=== PATIENT | female | born 1950 | race Caucasian/White ===

== ENCOUNTER → 2016-12-23 | Outpatient (CLI) | payer MEDICARE, OTHER ==
[~2016-12-23] MED LIST: ASPI-558 PO; BENA20TA45 PO; CALC-587 PO; FISH1CAP29 PO; PRAV20TA48 PO; RANI-209 PO; VITAMIN D
--- NOTE | 2016-12-23 12:50 | DI ---
Indication: ITS.REASON: M25.562 PAIN IN LEFT KNEE PROCEDURE: KNEE LEFT 3 VIEWS: Encounter: Initial Comparison: None Findings: There is no acute fracture, dislocation or malalignment identified. Mild medial compartment joint space narrowing. Small lateral osteophytes. Impression: No acute osseous abnormality. Mild osteoarthritis. .
== END ==
LOC: IMA 11:54
PROVIDERS: ATTEND Family Medicine
DX: M17.12 Unilateral primary osteoarthritis, left knee (principal); M25.562 Pain in left knee

== ENCOUNTER → 2016-12-30 | Outpatient (CLI) | payer MEDICARE, OTHER ==
--- NOTE | 2016-12-30 16:13 | DI ---
Indication: ITS.REASON: M22.3X2 OTHER DERANGEMENTS OF PATELLA, LEFT KNEE PROCEDURE: MRI KNEE LEFT W/O CONTRAST: Encounter: Initial Comparison: Left knee radiographs dated December 23, 2016 Technique: Multiplanar multisequence MR imaging of the left knee was performed without contrast. Findings: There is a degenerative fairly extensive tear of the lateral meniscus. This is predominantly a horizontal tear. There is a complex macerated tear of the posterior horn medial meniscus with possible radial components. The ACL and PCL are intact. The MCL and lateral collateral ligament complex are intact. The extensor mechanism is intact. No acute fracture. The cartilage of the lateral compartment shows some mild partial-thickness cartilage loss. Medial compartment cartilage shows areas of full-thickness loss in the anterior aspect of the medial femoral condyle with subchondral edema. There is also cartilage loss on the anterior tibial plateau with osteophyte formation. Patellofemoral compartment has full-thickness loss in the median ridge and medial facet with partial-thickness loss laterally. No joint effusion. Moderate Bakers cyst. Muscular signal intensity is normal. 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 .
== END ==
LOC: IMA 10:39
PROVIDERS: ATTEND Family Medicine
DX: M17.12 Unilateral primary osteoarthritis, left knee (principal); M23.322 Other meniscus derangements, posterior horn of medial meniscus, left knee; M23.301 Other meniscus derangements, unspecified lateral meniscus, left knee